=== PATIENT | female | born 1970 | race Caucasian/White ===

== ENCOUNTER 2017-03-30 22:14 | Emergency (ER) | payer OTHER ==
[~2017-03-30] VITALS: Ht 175.3 cm; Wt 108.0 kg
[~2017-03-30 22:14] MED LIST: ACET120S PO; ALBU90OI61; ASCO500 PO; ASPI325; Antivert25 MG PO; BCP'S; BUPR150T2 PO; CALCAVITD PO; CLIMARA; CRANBERRY PO; CRUTCH USE; ERGO50000 PO; ESTNOR PO; ESTR.1TPW; ESTR2 PO; FEXPSEER; FEXPSEER PO; Flonase 0.05% N16 GM; HYDACE5; HYDACE5 PO; HYDMOR2 PO; HYDMOR4; HYDROCODONE/APAP PO; IBUP400; IBUP600 PO; LORA1 PO; LORA1SY; NAPR500 PO; ONDA8ODT MM; OXYACE5T PO; OXYC5 PO; PENVK250 PO; PROG100 PO; PROM25; PROM25 PO; RXOXYACE PO; Zofran Odt4 MG PO; [UNRECOGNIZED DRUG - OTHER]
[2017-03-30] MEDS ORDERED: Hair, Skin & N1 EACH PO (22:29)
[2017-03-30] MEDS ORDERED: St. John's Wor300 MG (22:30)
== END 2017-03-31 00:03 | disposition home or self-care (01) ==
LOC: ER 22:14
DX: G43.109 Migraine with aura, not intractable, without status migrainosus (principal); Z79.899 Other long term (current) drug therapy; Z90.49 Acquired absence of other specified parts of digestive tract; Z90.89 Acquired absence of other organs; Z90.710 Acquired absence of both cervix and uterus
CPT/HCPCS: 96374; 96375; 99283; J1200; J1885; J2405

== ENCOUNTER → 2017-11-17 | Outpatient (CLI) | payer OTHER ==
[~2017-11-17] MED LIST changes: +Hair, Skin & N1 EACH PO; +St. John's Wor300 MG
== END | disposition home or self-care (01) ==
LOC: LAB SRC 15:56 → LAB SHORT 15:56
DX: R30.0 Dysuria (principal)
CPT/HCPCS: 87086

== ENCOUNTER → 2018-05-21 | Outpatient (CLI) | payer OTHER | END | disposition home or self-care (01) | LOC: LAB SHORT 09:52 → LAB EV 09:52 | DX: J02.9 Acute pharyngitis, unspecified (principal) | CPT/HCPCS: 87070 ==

== ENCOUNTER 2020-01-13 09:29 | Emergency (ER) | payer OTHER ==
[~2020-01-13] VITALS: Ht 175.3 cm; Wt 127.0 kg
[~2020-01-13 09:29] MED LIST changes: +HYDR1TAB94 PO
[2020-01-13 11:43] LABS: Influenza A, PCR Negative (NEGATIVE); Influenza B, PCR Negative (NEGATIVE); Resp Syncytial Virus, PCR Negative (NEGATIVE); SARS-Cov-2 (COVID-19) PCR, MMC Negative (NEGATIVE)
== END 2020-01-13 11:17 | disposition home or self-care (01) ==
LOC: ER 09:29
PROVIDERS: Physician Assistant
DX: Z20.828 Contact with and (suspected) exposure to other viral communicable diseases (principal); Z02.79 Encounter for issue of other medical certificate; Z79.3 Long term (current) use of hormonal contraceptives; Z79.899 Other long term (current) drug therapy; Z88.8 Allergy status to other drugs, medicaments and biological substances
CPT/HCPCS: 0241U; 99282

== ENCOUNTER 2020-08-11 09:15 | Day surgery (SDC) | payer OTHER ==
[~2020-08-11] VITALS: Ht 175.3 cm; Wt 126.7 kg
[~2020-08-11 09:15] MED LIST changes: +ACYC400 PO; +ESTRADIOL TOP; +LORA10ER PO; +MULTIPLE VITAM1 EACH PO
[2020-08-11] MEDS ORDERED: VALA500 (09:40)
[2020-08-11] MEDS ORDERED: ST JOHN S WORT (09:42)
== END 2020-08-11 10:43 | disposition home or self-care (01) ==
LOC: ORSCSDS 09:15
PROVIDERS: Internal Medicine Gastroenterology
PROC: 0DBL8ZX Excision of Transverse Colon, Via Natural or Artificial Opening Endoscopic, Diagnostic (ICD-10-PCS; principal; 2020-08-11 10:30)
DX: Z12.11 Encounter for screening for malignant neoplasm of colon (principal); Z86.010 Personal history of colon polyps; D12.3 Benign neoplasm of transverse colon; J45.909 Unspecified asthma, uncomplicated; K64.8 Other hemorrhoids; K57.30 Diverticulosis of large intestine without perforation or abscess without bleeding; Z79.899 Other long term (current) drug therapy
CPT/HCPCS: 88305; J2704; J7120

== ENCOUNTER 2022-05-20 04:05 | Emergency (ER) | payer OTHER ==
[~2022-05-20] VITALS: Ht 172.7 cm; Wt 127.0 kg
[~2022-05-20 04:05] MED LIST changes: +ST JOHN S WORT; +VALA500
[2022-05-20 04:24] LABS: Source, Urine Clean Catch
[2022-05-20] MEDS ORDERED: ACYCLOVIR400 MG PO (04:24)
[2022-05-20 04:26] LABS: Bilirubin, Urine Neg (Neg); Blood, Urine Neg (Neg); Glucose Qualitative, Urine Neg (Neg); Ketones, Urine Neg (Neg); Leukocyte Esterase, Urine Neg (Neg); Nitrite, Urine Neg (Neg); Protein, Urine Neg (Neg); Urobilinogen, Urine NORM (Normal); pH, Urine 6.5 (5.0-8.0)
[2022-05-20 04:37] LABS: Appearance, Urine Clear (Clear); Color, Urine Yellow (P-Yellow)
[2022-05-20 04:42] LABS: BASOPHILS ABSOLUTE AUTO 0.04 K/mm3 (0.00-0.23); BASOPHILS PERCENT AUTO 0 % (0-2); EOSINOPHILS ABSOLUTE AUTO 0.69 K/mm3 (0.00-0.68); EOSINOPHILS PERCENT AUTO 7 % (0-6); IMMATURE GRAN ABSOLUTE AUTO 0.04 K/mm3 (0.00-0.10); IMMATURE GRAN PERCENT AUTO 0 % (0-1); LYMPHOCYTES ABSOLUTE AUTO 2.43 K/mm3 (0.84-5.20); LYMPHOCYTES PERCENT AUTO 24 % (21-46); MONOCYTES ABSOLUTE AUTO 0.52 K/mm3 (0.16-1.47); MONOCYTES PERCENT AUTO 5 % (4-13); Mean Corpuscular HGB 27.9 pg (26.0-34.0); Mean Corpuscular HGB Conc 33.3 g/dL (31.5-36.5); Mean Corpuscular Volume 84 fL (80-100); Mean Platelet Volume 10.5 fL (9.1-12.4); NEUTROPHILS ABSOLUTE AUTO 6.22 K/mm3 (1.96-9.15); NEUTROPHILS PERCENT AUTO 63 % (41-73); Platelet Count 232 K/mm3 (150-400); RDW Coefficient Variation 13.8 % (11.7-14.2); RDW Standard Deviation 42.3 fL (35.1-46.3); Red Blood Cell Count 5.01 M/mm3 (3.80-5.20); White Blood Cell Count 9.94 K/mm3 (4.00-11.30)
[2022-05-20 05:01] LABS: Albumin, Blood 3.5 g/dL (3.4-5.0); Albumin/Globulin Ratio 0.8 (0.8-1.8); Bilirubin, Total 0.2 mg/dL (0.1-1.0); Bun/Creatinine Ratio 22.4 (12.0-20.0); Creatinine, Blood 0.71 mg/dL (0.40-1.00); Globulin, Blood 4.2 g/dL (2.2-4.0); Total Protein, Blood 7.7 g/dL (6.4-8.2)
== END 2022-05-20 09:14 | disposition home or self-care (01) ==
LOC: ER 04:05
PROVIDERS: Emergency Medicine
DX: R10.9 Unspecified abdominal pain (principal); R93.2 Abnormal findings on diagnostic imaging of liver and biliary tract; Z90.49 Acquired absence of other specified parts of digestive tract; Z88.8 Allergy status to other drugs, medicaments and biological substances; Z79.899 Other long term (current) drug therapy
CPT/HCPCS: 36415; 74176; 80053; 81003; 85025; 96361; 96374-59; 96375; 99284-25; J1885; J2405; J7030

== ENCOUNTER → 2023-11-06 | Outpatient (CLI) | payer OTHER ==
[~2023-11-06] MED LIST changes: +ACYCLOVIR400 MG PO
[2023-11-06 14:35] LABS: BASOPHILS ABSOLUTE AUTO 0.04 K/mm3 (0.00-0.23); BASOPHILS PERCENT AUTO 0 % (0-2); EOSINOPHILS ABSOLUTE AUTO 0.09 K/mm3 (0.00-0.68); EOSINOPHILS PERCENT AUTO 1 % (0-6); Hematocrit 42.1 % (33.0-51.0); Hemoglobin 13.9 g/dL (11.5-16.0); IMMATURE GRAN ABSOLUTE AUTO 0.04 K/mm3 (0.00-0.10); IMMATURE GRAN PERCENT AUTO 0 % (0-1); LYMPHOCYTES ABSOLUTE AUTO 1.67 K/mm3 (0.84-5.20); LYMPHOCYTES PERCENT AUTO 17 % (21-46); MONOCYTES ABSOLUTE AUTO 0.51 K/mm3 (0.16-1.47); MONOCYTES PERCENT AUTO 5 % (4-13); Mean Corpuscular Volume 85 fL (80-100); Mean Platelet Volume 10.9 fL (9.1-12.4); NEUTROPHILS ABSOLUTE AUTO 7.47 K/mm3 (1.96-9.15); NEUTROPHILS PERCENT AUTO 76 % (41-73); Platelet Count 198 K/mm3 (150-400); RDW Coefficient Variation 14.6 % (11.7-14.2); RDW Standard Deviation 44.5 fL (35.1-46.3); Red Blood Cell Count 4.96 M/mm3 (3.80-5.20); White Blood Cell Count 9.82 K/mm3 (4.00-11.30)
[2023-11-06 14:46] LABS: Albumin, Blood 3.7 g/dL (3.4-5.0); Albumin/Globulin Ratio 0.9 (0.8-1.8); Bilirubin, Total 0.3 mg/dL (0.1-1.0); Bun/Creatinine Ratio 10.8 (12.0-20.0); Calcium, Blood 9.2 mg/dL (8.5-10.1); Creatinine, Blood 0.93 mg/dL (0.40-1.00); Globulin, Blood 3.9 g/dL (2.2-4.0); Total Protein, Blood 7.6 g/dL (6.4-8.2)
== END ==
LOC: LAB SHORT 14:22 → LAB 14:22
PROVIDERS: Emergency Medicine
DX: T75.4XXA Electrocution, initial encounter (principal)
CPT/HCPCS: 80053; 82550; 84484; 85025

== ENCOUNTER → 2023-11-20 | Outpatient (CLI) | payer OTHER ==
[2023-11-20 15:43] LABS: Bacterial Vaginosis PCR Negative (NEGATIVE); Candida Group, PCR NOT DETECTED (NOT DETECT); Candida glabrata-krusei, PCR NOT DETECTED (NOT DETECT)
== END | disposition home or self-care (01) ==
LOC: LAB SHORT 12:49 → LAB 12:49
PROVIDERS: Obstetrics & Gynecology
DX: N76.0 Acute vaginitis (principal)
CPT/HCPCS: 87481; 87661; 87801

== ENCOUNTER → 2024-12-13 | Outpatient (CLI) | payer OTHER | LOC: LAB 08:30 | DX: T50.905D Adverse effect of unspecified drugs, medicaments and biological substances, subsequent encounter (principal) ==